=== PATIENT | female | born 1930 | race Caucasian/White ===

== ENCOUNTER 2017-10-08 16:28 | Emergency (ER) | payer MEDICARE ==
[2017-10-08 19:24] LABS: #Basophils 0.1 thou/uL (0.0-0.2); #Eosinphils 0.1 thou/uL (0.0-0.7); #Lymphocytes 1.3 thou/uL (1.20-3.40); #Monocytes 0.8 thou/uL (0.11-0.59); #Neutrophils 7.3 thou/uL (1.40-6.50); %Basophils 0.6 % (0.0-1.0); %Eosinophils 1.1 % (0.0-10.0); %Lymphocytes 13.1 % (21.0-51.0); %Monocytes 8.1 % (0.0-10.0); Hematocrit 38.6 % (36.0-47.0); Mean Platelet Volume 8.5 fL (7.4-10.4); White Blood Cell (WBC) Count 9.5 thou/uL (4.8-10.8)
[2017-10-08 19:43] LABS: ALT (SGPT) 13 U/L (8-55); AST (SGOT) 19 U/L (5-34); Alkaline Phosphatase 120 U/L (40-150); Anion Gap 11 mmol/L (10-20); BUN (Urea Nitrogen) 20 mg/dL (9.8-20.1); Bilirubin, Total 0.5 mg/dL (0.2-1.2); Calc. Creatinine Clearance 0 mL/min (70-130); Calcium 9.8 mg/dL (7.8-10.44); Carbon Dioxide 29 mmol/L (23-31); Chloride 103 mmol/L (98-107); Estimated GFR-MDRD 74; Globulin 2.9 g/dL (2.4-3.5); Protein, Total 6.9 g/dL (6.0-8.3)
[2017-10-08] MEDS ORDERED: traMADol HCl 50 MG TAB ONE (20:19)
== END 2017-10-08 22:25 | disposition critical access hospital (66) ==
LOC: ERS 16:28
DX: S82.144A Nondisplaced bicondylar fracture of right tibia, initial encounter for closed fracture (principal); I25.2 Old myocardial infarction; I10 Essential (primary) hypertension; E78.5 Hyperlipidemia, unspecified; Z79.899 Other long term (current) drug therapy; Z79.82 Long term (current) use of aspirin; W01.0XXA Fall on same level from slipping, tripping and stumbling without subsequent striking against object, initial encounter
CPT/HCPCS: 36415; 80053; 85025; 99285

== ENCOUNTER 2018-02-26 12:29 | Inpatient (IN) | payer MEDICARE ==
[2018-02-26] MEDS ORDERED: Ondansetron ODT 4 MG TAB PO PRN (13:58)
[2018-02-26] MEDS ORDERED: Acetaminophen 325 MG TAB PO PRN ×2 (13:58→15:09)
[2018-02-26] MEDS ORDERED: Bisacodyl 5 MG TAB PO PRN ×2 (13:59→15:09)
[2018-02-26] MEDS ORDERED: Sodium Chloride 0.9% 1,000 ML IV SCH (14:00)
[2018-02-26] MEDS ORDERED: Diabetic Tussin 200 MG/10 ML UDCUP PO PRN (15:09)
[2018-02-26] MEDS ORDERED: cloNIDine 0.1 MG TAB PO PRN (15:09)
[2018-02-26] MEDS ORDERED: Mag-Al 1200 mg/1200 mg/30 ML UDCUP PO PRN (15:09)
[2018-02-26] MEDS ORDERED: Senokot 8.6 MG TAB PO PRN (15:09)
[2018-02-26] MEDS ORDERED: Ondansetron HCl/PF 4 MG/2 ML Vial IVP PRN (15:09)
[2018-02-26] MEDS ORDERED: Nitroglycerin 0.4 MG TAB (25 Tab Bottle) SL PRN (15:09)
[2018-02-26] MEDS ORDERED: hydrALAZINE 20 MG/ML VIAL SLOW IVP PRN (15:09)
[2018-02-26] MEDS ORDERED: Calcium Carbonate 500 MG ChewTAB PO PRN (15:09)
[2018-02-26] MEDS ORDERED: Benzonatate 100 MG CAP PO PRN (15:09)
[2018-02-26] MEDS ORDERED: Loratadine 10 MG TAB PO PRN (15:09)
[2018-02-26] MEDS ORDERED: traMADol HCl 50 MG TAB PO PRN (15:09)
--- NOTE | 2018-02-26 15:30 | PRG ---
DATE OF SERVICE: 02/26/2018 SUBJECTIVE: I have spoken to the transfer center and also to the hospitalist, Dr. Hernandez, the p carmen has been accepted at [facility] to the medical floor. Arrangements hav e been made for her transfer. The patient is being kept n.p.o. and kept on IV fluids 50 mL an hour. I have re-spoke to the patient and she knows she is being transferred and also spoke to her daughter , Danica.
[2018-02-26 15:36] VITALS: BMI 18.0
[2018-02-26] MEDS ORDERED: Succinylcholine Chloride 20 MG/ML 10 ml SYRINGE FS ONE (15:48)
[2018-02-26] MEDS ORDERED: PROPOFOL 200 MG/20 ML VIAL ONE (15:48)
[2018-02-26] MEDS ORDERED: PHENYLEPHRINE-NS 100 MCG/ML 10 ML SYRINGE ONE (15:48)
[2018-02-26] MEDS ORDERED: Lidocaine 1% PF 5 ML VIAL ONE (15:48)
--- NOTE | 2018-02-26 16:12 | HP ---
DATE OF ADMISSION: 02/26/2018 PRIMARY CARE PHYSICIAN: Walter Cardoso M.D. CHIEF COMPLAINT: Esophageal stricture and food impaction. HISTORY OF PRESENT ILLNESS: Ms. Valencia is an 87-year-old female with history of esophageal strictu re requiring dilatation in the past as well as history of coronary artery disease status post CABG in 1993 as well as hypertension, dyslipidemia, and severe GERD who presented to our facility as a direc t admit from [facility]. History is mainly obtained by the record review as well as disc ussion with the patient and her daughter present in the room. Ms. Valencia actually fell yesterday. She lives at home with her and a caregiver. She uses a walker, but she had a mechanical fall at home yesterday and was brought to [facility]. She underwent general imaging studies including a CT scan of the brain and CT scan of the cervi aron, thoracic, and lumbar spine. She did not have any acute fractures or any osseous changes in any of these scans. Incidental finding was noticed to have distended thoracic esophagus with ingested ma terial with possibility of food impaction. She was admitted to [facility] earlier this mo rning by Dr. Cardoso. Because of the possibility of food impaction, Gastroenterology was contacted by Dr. Cardoso and they recommended transfer to our facility for possible endoscopy tomorrow. At this time, she is feeling well and has no acute complaints. She denies any chest pain, odynophagi a or dysphagia. She denies any nausea, vomiting, diarrhea or abdominal pain. She does have some nikolai n in her hips from recent falls. PAST MEDICAL HISTORY: 1. Coronary artery disease status post CABG in 1993. 2. Hypertension. 3. Dyslipidemia. 4. Severe gastroesophageal reflux disease. 5. History of esophageal stricture requiring dilatation on 02/10/2017. 6. Osteoarthritis. 7. Osteoporosis with compression fracture of T8, T11, T12 and L1 and fracture of the right hip requi ring philip and nails. PAST SURGICAL HISTORY: 1. Right hip fracture repair. 2. Appendectomy. 3. TAHBSO. 4. Bilateral rotator cuff repair. ALLERGIES: No known medication allergies. SOCIAL HISTORY: She is and lives at home with her and has a care provider. No histo ry of drug, tobacco or alcohol abuse. CODE STATUS: FULL CODE discussed with patient. FAMILY HISTORY: Both parents with coronary artery disease. CURRENT MEDICATIONS: As per Dr. Cardoso, most recent include metoprolol succinate 25 mg daily, Nexium 40 mg daily, trospium 20 mg p.o. b.i.d., atorvastatin 20 mg daily, vitamin D 5000 units daily, Caltr ate 600/200 daily, acetaminophen as needed, aspirin 81 mg daily, metoclopramide 5 mg per 5 mL b.i.d. as needed. REVIEW OF SYSTEMS: The following complete review of systems was negative, unless otherwise mentioned in the HPI or below: Constitutional: Weight loss or gain, ability to conduct usual activities. Skin: Rash, itching. Eyes: Double vision, pain. ENT/Mouth: Nose bleeding, neck stiffness, pain, tenderness. Cardiovascular: Palpitations, dyspnea on exertion, orthopnea. Respiratory: Shortness of breath, wheezing, cough, hemoptysis, fever or night sweats. Gastrointestinal: Poor appetite, abdominal pain, heartburn, nausea, vomiting, constipation, or diarr hea. Genitourinary: Urgency, frequency, dysuria, nocturia. Musculoskeletal: Pain, swelling. Neurologic/Psychiatric: Anxiety, depression. Allergy/Immunologic: Skin rash, bleeding tendency. It is negative except for those mentioned in the history and physical. LABORATORY DATA AND IMAGING DATA: Labs are reviewed today from [facility]. CBC is unrema rkable. She does have neutrophilia without any leukocytosis. Serum chemistries show blood sugar of 127. Cardiac enzymes normal limits. BUN 28, creatinine normal at 0.87. Chest x-ray by my review vega s no evidence to suggest pulmonary effusion, edema or infiltrate. CT scan of the brain per my review has no acute intracranial abnormalities. CT scan of the cervical, thoracic, and lumbar spine negati ve for any acute fractures. PHYSICAL EXAMINATION: VITAL SIGNS: Temperature 97.7, pulse of 91, respirations 18, saturating 94% on room air, blood press ure 150/66. GENERAL: No acute distress, awake, alert, oriented x3. HEENT: Mucous membranes slightly dry. No oropharyngeal exudate or erythema. Head is normocephalic, atraumatic. Pupils are equal and reactive to light and accommodation. NECK: Supple without any lymphadenopathy, JVD or bruit. CHEST: Clear to auscultation without any wheezing, rales or rhonchi. Rhythm is regular without any murmur, rubs or gallops. ABDOMEN: Soft, nontender, and nondistended with positive bowel sound. No guarding, rebound or rigid ity. EXTREMITIES: Free of any cyanosis, clubbing, or edema. NEUROLOGIC: Examination is nonfocal. SKIN: Free of any rashes or bruises. I feel warm and dry to touch. PSYCHIATRIC: Normal affect. IMPRESSION AND PLAN: 1. Esophageal stricture and food impaction. Gastroenterology has been consulted and she will be kep t n.p.o. for possible esophagogastroduodenoscopy in the morning. At this time, we will add IV proton pump inhibitor and IV fluids to maintain hydration. At this time, we will hold all of her oral medi cations. Add p.r.n. medications as needed. 2. History of coronary artery disease. We will restart her home medications once esophagogastroduod enoscopy is done and she is cleared by Gastroenterology Services. 3. Hypertension. Add p.r.n. antihypertensives and restart home medications when she is cleared to t cheryle oral intake. 4. Dyslipidemia. Restart home medications once confirmed. 5. Code status: FULL CODE. Discussed with the patient. 6. Deep venous thrombosis and gastrointestinal prophylaxis. DISPOSITION: Ms. Valencia is currently being admitted for food impaction and esophageal stricture. Further management will depend upon her clinical course and EGD results. Estimated length of stay at this time is at least 2-3 midnights.
[2018-02-26] MEDS: Sodium Chloride 0.9% 1,000 ML IV SCH (16:20)
[2018-02-26] MEDS ORDERED: Fentanyl 100 MCG/2 ML VIAL ONE (17:01)
--- NOTE | 2018-02-26 17:04 | CON ---
DATE OF CONSULTATION: 02/26/2018 REASON FOR CONSULTATION: Dysphagia, abnormal GI imaging. CONSULTING PHYSICIAN: Jennifer Venegas MD HISTORY OF PRESENT ILLNESS: The patient is an 87-year-old female with past medical history of hemorr hoids, coronary artery disease status post CABG, myocardial infarction, hypertension, osteoarthritis, hyperlipidemia, hiatal hernia, GERD and achalasia with esophageal stricture, presenting with complai nts of dysphagia. She states that she was in her usual state of health until approximately yesterday when she sustained a fall onto her right hip, which prompted her to seek medical attention today. H kiesha, while in [facility], she had imaging of her chest performed which showed a dilated esoph hardik as well as an air fluid level and what appeared to be food debris within the distal esophagus. Given her history of achalasia and likelihood of possible food impaction, she was subsequently transf erred to [facility] for evaluation. Currently, the patient denies any symptoms other than i ncreased right hip pain. Currently, she denies any nausea, vomiting, fevers, chills, dysphagia, odyn ophagia, abdominal pain, GI bleeding or weight loss. She did notice a choking episode approximately 1 week ago when she was trying to eat fried chicken, but has been attempting to adhere to a soft/pure e diet with some dietary indiscretion. Of note, she has undergone multiple EGDs within the last year with the most recent being on 7. During the most recent EGD, she was noted to have a patulous esophagus, but a GE junction that wa s easily traversed with the standard gastroscope. However, she did have an EGD performed on 02/11/20, which showed a significant amount of food debris and food material within the distal esophagus th at did require multiple interventions to remove. REVIEW OF SYSTEMS: Her 10 category review of systems was obtained with all responses negative except for the pertinent positives as listed in the HPI. PAST MEDICAL HISTORY: As per HPI. PAST SURGICAL HISTORY: Hysterectomy, appendectomy, tonsillectomy, bilateral shoulder repair, coronar y artery bypass graft x3, bilateral cataract repair, bilateral tubal ligation. FAMILY HISTORY: Denies any GI malignancies. SOCIAL HISTORY: Denies any tobacco, alcohol or illicit drug use. OUTPATIENT MEDICATIONS: Reviewed. ALLERGIES: An allergy to PENICILLIN in chart, although she states to me at bedside that she does not have this particular allergy. PHYSICAL EXAMINATION: VITAL SIGNS: Temperature 97.7, pulse 91, blood pressure 150/66, respiratory rate 18, satting 94% on room air. GENERAL: The patient is lying in bed comfortably, in no acute distress. Alert and oriented x4. NECK: Supple, no JVD noted. CARDIOVASCULAR: Regular rate and rhythm with no discernible murmurs, gallops or rubs. RESPIRATORY: Clear to auscultation bilaterally with no discernible wheezes or rales. ABDOMEN: Normoactive bowel sounds, soft, nontender, nondistended. EXTREMITIES: No cyanosis, clubbing or edema. Mild cachexia in appearance. LABORATORY DATA: No current labs are available for review. IMAGING DATA: Chest imaging obtained at [facility] showed a significant air fluid level w ithin the distal esophagus as well what appeared to be food debris consistent with a food impaction. ASSESSMENT AND PLAN: The patient is an 87-year-old female with past medical history of hypertension, osteoarthritis, hyperlipidemia, coronary artery disease status post CABG x3, hemorrhoids, hiatal her tressa, gastroesophageal reflux disease, and achalasia, presenting with abnormal GI imaging consistent w ith achalasia and food impaction. Food impaction: The patient is presenting with relatively asymptomatic course with no significant di fficulties with her swallowing; however, she did have an episode of choking approximately 1 week ago, but that was short-lived and did not have a recurrence during this time. However, upon review of he r medical chart, she does have a significant history of dilated distal esophagus as well as an esopha geal stricture that required dilation in January or March of last year. She is now presenting with GI im aging consistent with a dilated distal esophagus and probable food impaction at the GE junction. At this point and especially with her history of achalasia, this is strongly concerning for a food impac tion and would require more emergent endoscopic evaluation for removal of this food. RECOMMENDATIONS: 1. Keep patient n.p.o. for planned procedure later this evening. 2. We will plan for EGD later this evening for removal of the food impaction/bolus and evaluation of the distal esophagus for recurrence of achalasia. 3. We would hold any blood thinners or anticoagulation for now given the possibility of esophageal d ilation. We will continue to follow. Please call with any questions.
[2018-02-26] MEDS ORDERED: Famotidine 20 MG TAB PO SCH (21:00)
[2018-02-26] MEDS: Morphine 4 MG/ML VIAL SLOW IVP PRN (21:11)
[2018-02-26] MEDS: Metoclopramide 10 MG/10 ML UDCUP PO SCH (21:15)
--- NOTE | 2018-02-26 21:31 | OP ---
DATE OF PROCEDURE: 02/26/2018 PROCEDURE: Esophagogastroduodenoscopy with foreign body removal and biopsies. INDICATION FOR PROCEDURE: 1. Abnormal GI imaging 2. History of food impaction. DESCRIPTION OF PROCEDURE: After the risks and benefits of the procedure were explained to the patien t including risks of bleeding, infection, perforation, reactions to anesthesia and/or pain. Informed consent was obtained. The patient was then taken to the endoscopy suite where general anesthesia wa s administered with general endotracheal tube intubation, performed by Anesthesia support. Once adeq uate sedation and intubation had been achieved, the standard gastroscope was introduced into the mout h with intubation of the esophagus, stomach, and the proximal small intestine with the findings liste d below. The patient tolerated the procedure well with no immediate perioperative complications. FINDINGS: Esophagus: Normal appearing mucosa was seen in the proximal esophagus, however, starting at 20 cm and extending down to 35 cm (GE junction). There was a significant amount of retained food, both solid and liquid in form. This retained food was amenable to aggressive irrigation and suction ing with removal of the majority of the food via that route while these larger pieces of food were pu shed into the stomach without difficulty. Underlying the food, there were innumerable whitish plaque s covering approximately 50% of the esophageal mucosa that was friable to the passage of the gastrosc ope. Multiple biopsies were taken of these whitish plaques for evaluation of possible Joi esopha gitis. However, during the course of the procedure with clearing of the mid and distal esophagus, re tained food contents were also seen refluxing back into the distal esophagus. Stomach: A [id number] amount of retained food was seen within the stomach in the gastric cardia and fundus, thereby limiting visualization of the gastric mucosa. This food was amenable to aggress reg irrigation and suctioning with adequate views of these regions obtained of the mucosa visualized. There was no evidence of erosions, ulcerations, mass lesions or active/recent bleeding seen in the cardia, fundus, body, antrum, and incisura. Duodenum: Normal appearing mucosa was seen in both the duodenal bulb and second portion of the duode num. There was no evidence of erosions, ulcerations, or mass lesions. IMPRESSION: 1. A large amount of retained food was seen in the [id number] esophagus as well as the proximal s tomach initially limiting visualization of the GI mucosa, but was at amenable to aggressive irrigatio n and suctioning. 2. Innumerable white plaques seen in the proximal and distal esophagus consistent with Joi esoph agitis. 3. Reflux of gastric contents was seen while evaluating the esophagus consistent with severe acid re flux and/or possible gastroparesis given the amount of retained food. 4. No evidence of distal esophageal stricture or stenosis seen. RECOMMENDATIONS: 1. We will start the patient on fluconazole 200 mg daily x21 days for treatment of Joi esophagit is. 2. We will also restart patient on liquid metoclopramide 5 mg twice daily for probable gastroparesis . 3. Would continue pantoprazole daily for acid reflux seen during this examination. 4. Would place the patient on a clear liquid diet for the time being given the retained food seen on examination today. 5. We will follow up on biopsy results to confirm the presence of Joi esophagitis. We will continue to follow. Please call with any questions.
[2018-02-27] MEDS: Morphine 4 MG/ML VIAL SLOW IVP PRN ×2 (04:50→19:51)
[2018-02-27 04:51] LABS: #Eosinphils 0.2 thou/uL (0.0-0.7); #Lymphocytes 0.8 thou/uL (1.20-3.40); #Monocytes 0.5 thou/uL (0.11-0.59); #Neutrophils 6.1 thou/uL (1.40-6.50); %Basophils 0.3 % (0.0-1.0); %Eosinophils 2.1 % (0.0-10.0); %Lymphocytes 10.9 % (21.0-51.0); %Monocytes 6.7 % (0.0-10.0); %Neutrophils 80.1 % (42.0-75.0); Hemoglobin 10.7 g/dL (12.0-16.0); Mean Corpuscular HGB CONC 32.6 g/dL (32.0-36.0); Mean Corpuscular Hemoglobin 27.4 pg (27.0-31.0); Mean Corpuscular Volume 83.9 fl (81.0-99.0); Mean Platelet Volume 9.3 fL (7.4-10.4); PLT Morphology Comment Appears Decreased; Platelet Count 119 thou/uL (130-400); RBC Distribution Width 16.4 % (11.5-14.5); Red Blood Cell (RBC) Count 3.91 mill/uL (4.20-5.40); White Blood Cell (WBC) Count 7.7 thou/uL (4.8-10.8)
[2018-02-27 04:53] LABS: Anion Gap 12 mmol/L (10-20); BUN (Urea Nitrogen) 20 mg/dL (9.8-20.1); Calc. Creatinine Clearance 37 mL/min (70-130); Calcium 8.5 mg/dL (7.8-10.44); Carbon Dioxide 24 mmol/L (23-31); Chloride 106 mmol/L (98-107); Estimated GFR-MDRD 76; Glucose 69 mg/dL (83-110); Sodium 138 mmol/L (136-145)
[2018-02-27] MEDS: Sodium Chloride 0.9% 1,000 ML IV SCH ×3 (05:50→19:42)
[2018-02-27] MEDS ORDERED: Calcium Carbonate + Vit D 1 TAB PO SCH (09:00)
[2018-02-27] MEDS ORDERED: Fluconazole 100 MG TAB PO SCH (09:00)
[2018-02-27] MEDS ORDERED: TROSPIUM 20 MG TABLET PO SCH (09:00)
[2018-02-27] MEDS ORDERED: Pantoprazole 40 MG VIAL IVP SCH (09:00)
[2018-02-27] MEDS ORDERED: Enoxaparin Sodium 40 MG/0.4 ML SYRINGE SC SCH (09:00)
[2018-02-27] MEDS: Metoclopramide 10 MG/10 ML UDCUP PO SCH ×2 (11:29→19:46)
[2018-02-27] MEDS ORDERED: Morphine 4 MG/ML VIAL SLOW IVP PRN (11:30)
--- NOTE | 2018-02-27 11:41 | PDOC.PN ---
- Subjective Encounter Start Date: 02/27/18 Encounter Start Time: 09:20 -: old records requested/rev pt is on clear liquid diet, no fever, she is able to take oral meds but crushed - Objective Resuscitation Status: Resuscitation Status FULL:Full Resuscitation MAR Reviewed: Yes Vital Signs & Weight: Vital Signs (12 hours) Temp Pulse Resp BP Pulse Ox 02/27/18 08:00 97.5 F L 92 18 92 L 02/27/18 07:49 97.5 F L 92 18 153/64 H 92 L 02/27/18 04:00 98.6 F 92 16 148/65 H 91 L 02/27/18 00:00 98.7 F 85 16 120/61 93 L Weight Weight 92 lb 3 oz Result Diagrams: 02/27/18 04:10 02/27/18 04:10 Phys Exam - Physical Examination Constitutional: NAD HEENT: PERRLA, moist MMs, sclera anicteric Neck: no JVD, supple Respiratory: no wheezing, no rales, no rhonchi Cardiovascular: RRR, no significant murmur, no rub Gastrointestinal: soft, non-tender, no distention, positive bowel sounds Musculoskeletal: no edema, pulses present Neurological: non-focal, normal sensation Lymphatic: no nodes Psychiatric: normal affect Skin: no rash, normal turgor Dx/Plan (1) Joi esophagitis Code(s): B37.81 - CANDIDAL ESOPHAGITIS Status: Acute (2) Food impaction of esophagus Code(s): T18.128A - FOOD IN ESOPHAGUS CAUSING OTHER INJURY, INITIAL ENCOUNTER Status: Acute (3) Thrombocytopenia Code(s): D69.6 - THROMBOCYTOPENIA, UNSPECIFIED Status: Acute (4) Anemia, normocytic normochromic Code(s): D64.9 - ANEMIA, UNSPECIFIED Status: Chronic (5) CAD (coronary artery disease) Code(s): I25.10 - ATHSCL HEART DISEASE OF [place] CORONARY ARTERY W/O ANG PCTRS Status: Chronic Qualifiers: (6) Dyslipidemia Code(s): E78.5 - HYPERLIPIDEMIA, UNSPECIFIED Status: Chronic (7) GERD with esophagitis Code(s): K21.0 - GASTRO-ESOPHAGEAL REFLUX DISEASE WITH ESOPHAGITIS Status: Chronic (8) HTN (hypertension) Code(s): I10 - ESSENTIAL (PRIMARY) HYPERTENSION Status: Chronic Qualifiers: (9) Hiatal hernia Code(s): K44.9 - DIAPHRAGMATIC HERNIA WITHOUT OBSTRUCTION OR GANGRENE Status: Chronic (10) Protein-calorie malnutrition, moderate Code(s): E44.0 - MODERATE PROTEIN-CALORIE MALNUTRITION Status: Chronic - Plan cont current plan of care, continue antibiotics * continue diflucan * continue IVF * today will advance diet as tolerated * ambulate as tolerated * GI help appreciated * resume selected home meds * check UA and urine culture * medication reviewed as below * symptomatic treatment. Review of Systems - Review of Systems ENT: negative: Ear Pain, Ear Discharge, Nose Pain, Nose Discharge, Nose Congestion, Mouth Pain, Mouth Swelling, Throat Pain, Throat Swelling, Other Respiratory: negative: Cough, Dry, Shortness of Breath, Hemoptysis, SOB with Excertion, Pleuritic Pain, Sputum, Wheezing Cardiovascular: negative: chest pain, palpitations, orthopnea, paroxysmal nocturnal dyspnea, edema, light headedness, other Gastrointestinal: negative: Nausea, Vomiting, Abdominal Pain, Diarrhea, Constipation, Melena, Hematochezia, Other Genitourinary: negative: Dysuria, Frequency, Incontinence, Hematuria, Retention , Other Musculoskeletal: negative: Neck Pain, Shoulder Pain, Arm Pain, Back Pain, Hand Pain, Leg Pain, Foot Pain, Other Skin: negative: Rash, Lesions, Orion, Bruising, Other - Medications/Allergies Allergies/Adverse Reactions: Allergies Allergy/AdvReac Type Severity Reaction Status Date / Time Penicillins Allergy Unknown Verified 02/25/18 23:54 Medications: Current Medications Acetaminophen (Tylenol) 650 mg PO Q4H PRN PRN Reason: Headache/Fever or Pain Al Hydroxide/Mg Hydroxide (Maalox) 30 ml PO Q6H PRN PRN Reason: Heartburn or Indigestion Atorvastatin Calcium (Lipitor) 20 mg PO HS GUERA Benzonatate (Tessalon) 100 mg PO Q4H PRN PRN Reason: Cough Bisacodyl (Dulcolax) 10 mg PO DAILYPRN PRN PRN Reason: Constipation Calcium Carbonate (Tums) 1,000 mg PO Q4H PRN PRN Reason: Heartburn or Indigestion Calcium/Vitamin D (Caltrate 600 + Vit D) 1 tab PO DAILY GUERA Cholecalciferol (Vitamin D3) 5,000 units PO DAILY GUERA Clonidine (Catapres) 0.1 mg PO Q4H PRN PRN Reason: Systolic BP > 160 Enoxaparin Sodium (Lovenox) 40 mg SC 0900 [facility] Fluconazole (Diflucan) 200 mg PO DAILY [facility] Stop: 03/19/18 09:01 Guaifenesin (Robitussin Sf) 200 mg PO Q4H PRN PRN Reason: Cough Hydralazine HCl (Apresoline) 10 mg SLOW IVP Q4H PRN PRN Reason: Systolic BP > 170 Sodium Chloride (Normal Saline 0.9%) 1,000 mls @ 75 mls/hr IV .[id number] [facility] Last Admin: 02/27/18 05:50 Dose: 1,000 mls Loratadine (Claritin) 10 mg PO DAILYPRN PRN PRN Reason: Sinus Symptoms Metoclopramide HCl (Reglan) 5 mg PO BID [facility] Last Admin: 02/26/18 21:15 Dose: 5 mg Metoprolol Succinate (Toprol Xl) 25 mg PO DAILY [facility] Morphine Sulfate (Morphine) 1 mg SLOW IVP Q4H PRN PRN Reason: Moderate to Severe Pain (6-10) Last Admin: 02/27/18 11:23 Dose: 1 mg Nitroglycerin (Nitrostat) 0.4 mg SL Q5MIN PRN PRN Reason: Chest Pain Ondansetron HCl (Zofran Odt) 4 mg PO Q6H PRN PRN Reason: Nausea/Vomiting Ondansetron HCl (Zofran) 4 mg IVP Q6H PRN PRN Reason: Nausea/Vomiting Pantoprazole Sodium (Protonix) 40 mg IVP DAILY [facility] Last Admin: 02/27/18 11:27 Dose: 40 mg Senna (Senokot) 2 tab PO HSPRN PRN PRN Reason: Constipation Sodium Chloride (Flush - Normal Saline) 10 ml IVF Q12HR [facility] Last Admin: 02/26/18 21:16 Dose: Not Given Sodium Chloride (Flush - Normal Saline) 10 ml IVF PRN PRN PRN Reason: Saline Flush Tramadol HCl (Ultram) 50 mg PO Q4H PRN PRN Reason: Moderate Pain (4-6) Trospium (Trospium) 20 mg PO BID [facility]
[2018-02-27 12:05] LABS: Bilirubin Negative (Negative); Blood, Urine Negative (Negative); Clarity CLOUDY (Clear); Glucose, Urine (Dipstick) Negative (Negative); Leukocyte Small (Negative); Nitrite Positive (Negative); Protein, Urine (Dipstick) Negative (Neg-Trace); Specific Gravity, Urine 1.016 (1.002-1.036); Urobilinogen 0.2 mg/dL (0.2-1.0)
[2018-02-27 12:08] LABS: Bacteria/HPF Rare-Few HPF (None Seen); Hyaline Casts/LPF 0-3 HYALINE CAST LPF (0-3 Hyaline); Pathc Cast-AUWi Flag 0.14 (0-2.49); RBC/HPF 0-3 HPF (0-3); Squamous Epithelial 0-3 HPF (0-3)
[2018-02-27] MEDS ORDERED: Acetaminophen 325 MG TAB PO PRN (13:56)
[2018-02-27] MEDS ORDERED: Nitroglycerin 0.4 MG TAB (25 Tab Bottle) SL PRN (13:56)
[2018-02-27] MEDS ORDERED: Chloraseptic Spray 180 ml Bottle PO PRN (13:56)
[2018-02-27] MEDS ORDERED: Mag-Al 1200 mg/1200 mg/30 ML UDCUP PO PRN (13:56)
[2018-02-27] MEDS ORDERED: Diabetic Tussin 200 MG/10 ML UDCUP PO PRN (13:56)
[2018-02-27] MEDS ORDERED: Eucerin (Mineral Oil/Petrolatum,White) 30 gm Jar TOP PRN (13:56)
[2018-02-27] MEDS ORDERED: Ondansetron ODT 4 MG TAB PO PRN (13:56)
[2018-02-27] MEDS ORDERED: Bisacodyl 5 MG TAB PO PRN (13:56)
[2018-02-27] MEDS ORDERED: Calcium Carbonate 500 MG ChewTAB PO PRN (13:56)
[2018-02-27] MEDS ORDERED: Artificial Tear Sol 15 ML BOT EA EYE PRN (13:56)
[2018-02-27] MEDS ORDERED: Ondansetron HCl/PF 4 MG/2 ML Vial IVP PRN (13:56)
[2018-02-27] MEDS ORDERED: Loratadine 10 MG TAB PO PRN (13:56)
[2018-02-27] MEDS ORDERED: Milk Of Magnesia 30 ML UDCUP PO PRN (13:56)
[2018-02-27] MEDS ORDERED: Temazepam 15 MG CAP PO PRN (13:56)
[2018-02-27] MEDS ORDERED: Loperamide HCl 2 MG CAP PO PRN (13:56)
[2018-02-27] MEDS ORDERED: cloNIDine 0.1 MG TAB PO PRN (13:56)
[2018-02-27] MEDS ORDERED: Senokot 8.6 MG TAB PO PRN (13:56)
[2018-02-27] MEDS ORDERED: Sodium Chloride 0.65% Nasal 44 ML BOT EA NARE PRN (13:56)
--- NOTE | 2018-02-27 14:18 | PRG ---
DATE OF SERVICE: 02/27/2018 REASON FOR CONSULTATION: Dysphagia and abnormal GI imaging. SUBJECTIVE: The patient states that she continues to have right hip pain that she has had since she sustained a fall the day prior to admission. Otherwise, she states that she is doing well with no complaints of nausea, vomiting, fevers , chills, shortness of breath, dysphagia, odynophagia or abdominal pain. OBJECTIVE: VITAL SIGNS: Temperature 97.8, pulse 96, blood pressure 174/73, respiratory rate 16, and satting 96% on room air. GENERAL: Lying in bed comfortably in no acute distress. Alert and oriented x4. CARDIOVASCULAR: Regular rate and rhythm. RESPIRATORY: Clear to auscultation bilaterally. ABDOMEN: Normoactive bowel sounds, soft, nontender, and nondistended. EXTREMITIES: No cyanosis, clubbing or edema. LABORATORY DATA: CBC with white blood cell count of 7.7, hemoglobin 10.7, hematocrit 32.8, and platelets 119. Chemistry with sodium 138, potassium 4, chloride 106, CO2 24, BUN 20, creatinine 0.73, glucose 69. IMAGING DATA: No current GI imaging is available for review. ASSESSMENT AND PLAN: The patient is an 87-year-old female with past medical history of hypertension, osteoarthritis, hyperlipidemia, coronary artery disease status post CABG x3, hemorrhoids, hiatal hernia, GERD and achalasia presenting with food impaction of the distal esophagus as well as severe gastroesophageal reflux disease. Food impaction: Patient initially presented with relatively asymptomatic course with GI imaging positive for food impaction while she was being worked up for right hip pain after she sustained a fall. EGD was performed on 2017 with the finding of a significant amount of both liquid and solid food material within the distal esophagus and stomach despite being n.p.o. for at least 12 hours prior to the procedure. During the EGD, the food was cleared from the esophagus, but then noted to have reflux of significant amount of food back into the esophagus indicative of severe gastroesophageal reflux disease. There was no evidence of stenosis or stricture at the GE junction consistent with achalasia. At this time, the most likely reason for the food in her distal esophagus would be due to the impaired or dysfunctional esophageal motility and when coupled with delayed gastric emptying and significant acid reflux, it would present with the clinical picture that we saw both on imaging and on esophagogastroduodenoscopy. RECOMMENDATIONS: 1. Would advance patient's diet to clear liquid diet and if she tolerates that we would advance to full liquid diet with soft or liquid diet after that. 2. We would have the patient to remain upright during the day for medication and food administration due to significant acid reflux disease. 3. Would continue PPI for now. 4. Would continue oral elixir Reglan for delayed gastric emptying. 5. Would continue fluconazole for 21 days total therapy for oral candidiasis. 6. We will follow up on the biopsy results. We will sign off. With the above measures, the patient is stable enough from a GI standpoint to be discharged. We would ultimately discharge this patient to follow up within the GI Clinic in 2 weeks for reevaluation of delayed gastric emptying and severe gastroesophageal reflux disease. JAMAAL
[2018-02-27] MEDS: Ciprofloxacin Lactate/D5W 200 MG in Premix Bag 1 BAG IVPB SCH (15:29)
[2018-02-27] MEDS: hydrALAZINE 20 MG/ML VIAL SLOW IVP PRN (15:56)
[2018-02-27] MEDS: HYDROcodone/Acetaminophen 5/325 mg Tablet PO PRN ×2 (16:01→23:00)
[2018-02-27] MEDS: TROSPIUM 20 MG TABLET PO SCH (19:46)
[2018-02-27] MEDS ORDERED: Atorvastatin Calcium 20 MG TAB PO SCH ×2 (21:00)
[2018-02-27] MEDS ORDERED: Ciprofloxacin Lactate/D5W 200 MG in Premix Bag 1 BAG IVPB SCH (21:00)
[2018-02-28] MEDS: Morphine 4 MG/ML VIAL SLOW IVP PRN ×2 (01:33→08:47)
[2018-02-28] MEDS: Ciprofloxacin Lactate/D5W 200 MG in Premix Bag 1 BAG IVPB SCH ×2 (02:08→14:55)
[2018-02-28] MEDS: HYDROcodone/Acetaminophen 5/325 mg Tablet PO PRN ×2 (04:21→17:52)
[2018-02-28 05:28] LABS: #Eosinphils 0.1 thou/uL (0.0-0.7); #Monocytes 0.6 thou/uL (0.11-0.59); #Neutrophils 5.4 thou/uL (1.40-6.50); %Basophils 0.3 % (0.0-1.0); %Eosinophils 1.9 % (0.0-10.0); %Lymphocytes 13.6 % (21.0-51.0); %Monocytes 8.3 % (0.0-10.0); %Neutrophils 75.9 % (42.0-75.0); Hemoglobin 13.1 g/dL (12.0-16.0); Mean Corpuscular HGB CONC 32.2 g/dL (32.0-36.0); Mean Corpuscular Hemoglobin 27.2 pg (27.0-31.0); Mean Corpuscular Volume 84.3 fl (81.0-99.0); Mean Platelet Volume 9.6 fL (7.4-10.4); Platelet Count 146 thou/uL (130-400); RBC Distribution Width 16.4 % (11.5-14.5); Red Blood Cell (RBC) Count 4.83 mill/uL (4.20-5.40); White Blood Cell (WBC) Count 7.1 thou/uL (4.8-10.8)
--- NOTE | 2018-02-28 05:31 | PDOC.PN ---
- Subjective Encounter Start Date: 02/28/18 Encounter Start Time: 10:15 Patient seen and examined. No new complaints. No overnight events - Objective Resuscitation Status: Resuscitation Status FULL:Full Resuscitation MAR Reviewed: Yes Vital Signs & Weight: Vital Signs (12 hours) Temp Pulse Resp BP Pulse Ox 02/27/18 20:08 97.7 F 108 H 18 156/69 H 99 02/27/18 20:00 97.7 F 108 H 18 Weight Weight 92 lb 3 oz I&O: 02/26/18 02/27/18 02/28/18 06:59 06:59 06:59 Intake Total 1621 Balance 1621 Result Diagrams: 02/28/18 05:08 02/28/18 05:08 Phys Exam - Physical Examination Constitutional: NAD HEENT: PERRLA, moist MMs, sclera anicteric Neck: no JVD, supple Respiratory: no wheezing, no rales, no rhonchi Cardiovascular: RRR, no significant murmur, no rub Gastrointestinal: soft, non-tender, no distention, positive bowel sounds Musculoskeletal: no edema, pulses present Neurological: non-focal, normal sensation, moves all 4 limbs Lymphatic: no nodes Psychiatric: normal affect Skin: no rash, normal turgor Dx/Plan (1) Food impaction of esophagus Code(s): T18.128A - FOOD IN ESOPHAGUS CAUSING OTHER INJURY, INITIAL ENCOUNTER Status: Acute (2) Joi esophagitis Code(s): B37.81 - CANDIDAL ESOPHAGITIS Status: Acute (3) UTI (urinary tract infection) Status: Acute (4) Thrombocytopenia Code(s): D69.6 - THROMBOCYTOPENIA, UNSPECIFIED Status: Resolved (5) Anemia, normocytic normochromic Code(s): D64.9 - ANEMIA, UNSPECIFIED Status: Chronic (6) CAD (coronary artery disease) Code(s): I25.10 - ATHSCL HEART DISEASE OF [place] CORONARY ARTERY W/O ANG PCTRS Status: Chronic Qualifiers: (7) Dyslipidemia Code(s): E78.5 - HYPERLIPIDEMIA, UNSPECIFIED Status: Chronic (8) GERD with esophagitis Code(s): K21.0 - GASTRO-ESOPHAGEAL REFLUX DISEASE WITH ESOPHAGITIS Status: Chronic (9) HTN (hypertension) Code(s): I10 - ESSENTIAL (PRIMARY) HYPERTENSION Status: Chronic Qualifiers: (10) Hiatal hernia Code(s): K44.9 - DIAPHRAGMATIC HERNIA WITHOUT OBSTRUCTION OR GANGRENE Status: Chronic (11) Protein-calorie malnutrition, moderate Code(s): E44.0 - MODERATE PROTEIN-CALORIE MALNUTRITION Status: Chronic - Plan cont current plan of care, continue antibiotics * advance diet as per GI * continue cipro for UTI * continue diflucan * medication reviewed as below * symptomatic treatment * DC IVF * expecting discharge soon * follow urine culture. Review of Systems - Review of Systems ENT: negative: Ear Pain, Ear Discharge, Nose Pain, Nose Discharge, Nose Congestion, Mouth Pain, Mouth Swelling, Throat Pain, Throat Swelling, Other Respiratory: negative: Cough, Dry, Shortness of Breath, Hemoptysis, SOB with Excertion, Pleuritic Pain, Sputum, Wheezing Cardiovascular: negative: chest pain, palpitations, orthopnea, paroxysmal nocturnal dyspnea, edema, light headedness, other Gastrointestinal: negative: Nausea, Vomiting, Abdominal Pain, Diarrhea, Constipation, Melena, Hematochezia, Other Genitourinary: negative: Dysuria, Frequency, Incontinence, Hematuria, Retention , Other Musculoskeletal: negative: Neck Pain, Shoulder Pain, Arm Pain, Back Pain, Hand Pain, Leg Pain, Foot Pain, Other Skin: negative: Rash, Lesions, [place], Bruising, Other - Medications/Allergies Allergies/Adverse Reactions: Allergies Allergy/AdvReac Type Severity Reaction Status Date / Time Penicillins Allergy Unknown Verified 02/25/18 23:54 Medications: Current Medications Acetaminophen (Tylenol) 650 mg PO Q4H PRN PRN Reason: Headache/Fever or Mild Pain Hydrocodone Bitart/Acetaminophen ([place] 5/325) 1 tab PO Q4H PRN PRN Reason: Moderate Pain (4-6) Last Admin: 02/28/18 04:21 Dose: 1 tab Al Hydroxide/Mg Hydroxide (Maalox) 30 ml PO Q6H PRN PRN Reason: Heartburn or Indigestion Artificial Tears (Tears Renewed 15ml Bottle) 0 drop EA EYE PRN PRN PRN Reason: Dry Eyes Bisacodyl (Dulcolax) 10 mg PO DAILYPRN PRN PRN Reason: Constipation Calcium Carbonate (Tums) 1,000 mg PO Q4H PRN PRN Reason: Heartburn or Indigestion Calcium/Vitamin D (Caltrate 600 + Vit D) 1 tab PO QAM[facility] Last Admin: 02/28/18 08:45 Dose: 1 tab Cholecalciferol (Vitamin D3) 5,000 units PO DAILY [facility] Last Admin: 02/28/18 08:45 Dose: 5,000 units Clonidine (Catapres) 0.1 mg PO Q4H PRN PRN Reason: Systolic BP > 180 Enoxaparin Sodium (Lovenox) 40 mg SC 0900 [facility] Last Admin: 02/28/18 08:46 Dose: 40 mg Famotidine (Pepcid) 20 mg PO DAILY [facility] Last Admin: 02/28/18 08:45 Dose: 20 mg Fluconazole (Diflucan) 200 mg PO DAILY [facility] Last Admin: 02/28/18 08:46 Dose: 200 mg Guaifenesin (Robitussin Sf) 200 mg PO Q4H PRN PRN Reason: Cough Hydralazine HCl (Apresoline) 10 mg SLOW IVP Q4H PRN PRN Reason: Systolic BP > 180 Last Admin: 02/27/18 15:56 Dose: 10 mg Ciprofloxacin/Dextrose 200 mg/ (Device) 100 mls @ 100 mls/hr IVPB 0300,1500 [facility] Last Admin: 02/28/18 14:55 Dose: 100 mls Sodium Chloride (Normal Saline 0.9%) 1,000 mls @ 50 mls/hr IV .Q20H [facility] Last Admin: 02/27/18 19:42 Dose: 1,000 mls Loperamide HCl (Imodium) 2 mg PO PRN PRN PRN Reason: Diarrhea/Loose Stools Loratadine (Claritin) 10 mg PO DAILYPRN PRN PRN Reason: Sinus Symptoms Magnesium Hydroxide (Milk Of Magnesium) 30 ml PO DAILYPRN PRN PRN Reason: Constipation Metoclopramide HCl (Reglan) 5 mg PO BID [facility] Last Admin: 02/28/18 08:45 Dose: 5 mg Metoprolol Succinate (Toprol Xl) 25 mg PO DAILY [facility] Last Admin: 02/28/18 08:45 Dose: 25 mg Mineral Oil/White Petrolatum (Eucerin Cream) 0 gm TOP BIDPRN PRN PRN Reason: Dry Skin Morphine Sulfate (Morphine) 1 mg SLOW IVP Q4H PRN PRN Reason: Pain Last Admin: 02/28/18 08:47 Dose: 1 mg Nitroglycerin (Nitrostat) 0.4 mg SL Q5MIN PRN PRN Reason: Chest Pain Ondansetron HCl (Zofran Odt) 4 mg PO Q6H PRN PRN Reason: Nausea/Vomiting Ondansetron HCl (Zofran) 4 mg IVP Q6H PRN PRN Reason: Nausea/Vomiting Pantoprazole Sodium (Protonix) 40 mg IVP DAILY [facility] Last Admin: 02/28/18 08:45 Dose: 40 mg Phenol (Chloraseptic [place] 180 Ml Bot) 0 ml PO PRN PRN PRN Reason: Sore Throat Senna (Senokot) 2 tab PO HSPRN PRN PRN Reason: Constipation Sodium Chloride ([place] 0.65%) 0 ml EA NARE QIDPRN PRN PRN Reason: Nasal Congestion Temazepam (Restoril) 15 mg PO HSPRN PRN PRN Reason: Insomnia Last Admin: 02/27/18 19:50 Dose: 15 mg Trospium (Trospium) 20 mg PO BID [facility] Last Admin: 02/28/18 08:45 Dose: 20 mg
[2018-02-28 05:51] LABS: Anion Gap 15 mmol/L (10-20); BUN (Urea Nitrogen) 12 mg/dL (9.8-20.1); Calc. Creatinine Clearance 37 mL/min (70-130); Calcium 9.8 mg/dL (7.8-10.44); Carbon Dioxide 24 mmol/L (23-31); Chloride 104 mmol/L (98-107); Estimated GFR-MDRD 76; Glucose 108 mg/dL (83-110); Potassium 3.7 mmol/L (3.5-5.1); Sodium 139 mmol/L (136-145)
[2018-02-28] MEDS: Calcium Carbonate + Vit D 1 TAB PO SCH (08:45)
[2018-02-28] MEDS: Famotidine 20 MG TAB PO SCH (08:45)
[2018-02-28] MEDS: Metoclopramide 10 MG/10 ML UDCUP PO SCH ×2 (08:45→21:16)
[2018-02-28] MEDS: Pantoprazole 40 MG VIAL IVP SCH (08:45)
[2018-02-28] MEDS: TROSPIUM 20 MG TABLET PO SCH ×2 (08:45→21:15)
[2018-02-28] MEDS: Enoxaparin Sodium 40 MG/0.4 ML SYRINGE SC SCH (08:46)
[2018-02-28] MEDS: Fluconazole 100 MG TAB PO SCH (08:46)
[2018-02-28] MEDS: Sodium Chloride 0.9% 1,000 ML IV SCH (21:19)
[2018-03-01] MEDS: Ciprofloxacin Lactate/D5W 200 MG in Premix Bag 1 BAG IVPB SCH ×2 (02:32→16:37)
[2018-03-01] MEDS: Metoclopramide 10 MG/10 ML UDCUP PO SCH ×2 (08:34→20:49)
[2018-03-01] MEDS: Calcium Carbonate + Vit D 1 TAB PO SCH (08:34)
[2018-03-01] MEDS: Fluconazole 100 MG TAB PO SCH (08:36)
[2018-03-01] MEDS: Enoxaparin Sodium 40 MG/0.4 ML SYRINGE SC SCH (08:36)
[2018-03-01] MEDS: TROSPIUM 20 MG TABLET PO SCH ×2 (08:36→20:50)
[2018-03-01] MEDS: Pantoprazole 40 MG VIAL IVP SCH (08:36)
[2018-03-01] MEDS: Famotidine 20 MG TAB PO SCH (08:37)
[2018-03-01] MEDS: Morphine 4 MG/ML VIAL SLOW IVP PRN (08:37)
--- NOTE | 2018-03-01 10:21 | PDOC.PN ---
- Subjective Encounter Start Date: 03/01/18 Encounter Start Time: 09:40 Patient seen and examined. No overnight events c/o hip pain, - Objective Resuscitation Status: Resuscitation Status FULL:Full Resuscitation MAR Reviewed: Yes Vital Signs & Weight: Vital Signs (12 hours) Temp Pulse Resp BP Pulse Ox 03/01/18 08:01 97.7 F 90 16 177/78 H 97 Weight Weight 92 lb 3 oz I&O: 02/28/18 03/01/18 03/02/18 06:59 06:59 06:59 Intake Total 2227 1873 Balance 2227 1873 Result Diagrams: 02/28/18 05:08 02/28/18 05:08 Phys Exam - Physical Examination Constitutional: NAD HEENT: PERRLA, moist MMs, sclera anicteric Neck: no JVD, supple Respiratory: no wheezing, no rales, no rhonchi Cardiovascular: RRR, no significant murmur, no rub Gastrointestinal: soft, non-tender, no distention, positive bowel sounds Musculoskeletal: no edema, pulses present Neurological: non-focal, normal sensation Psychiatric: normal affect Skin: no rash, normal turgor Dx/Plan (1) Food impaction of esophagus Code(s): T18.128A - FOOD IN ESOPHAGUS CAUSING OTHER INJURY, INITIAL ENCOUNTER Status: Resolved (2) Joi esophagitis Code(s): B37.81 - CANDIDAL ESOPHAGITIS Status: Acute (3) UTI (urinary tract infection) Status: Acute (4) Thrombocytopenia Code(s): D69.6 - THROMBOCYTOPENIA, UNSPECIFIED Status: Resolved (5) Anemia, normocytic normochromic Code(s): D64.9 - ANEMIA, UNSPECIFIED Status: Chronic (6) CAD (coronary artery disease) Code(s): I25.10 - ATHSCL HEART DISEASE OF [place] CORONARY ARTERY W/O ANG PCTRS Status: Chronic Qualifiers: (7) Dyslipidemia Code(s): E78.5 - HYPERLIPIDEMIA, UNSPECIFIED Status: Chronic (8) GERD with esophagitis Code(s): K21.0 - GASTRO-ESOPHAGEAL REFLUX DISEASE WITH ESOPHAGITIS Status: Chronic (9) HTN (hypertension) Code(s): I10 - ESSENTIAL (PRIMARY) HYPERTENSION Status: Chronic Qualifiers: (10) Hiatal hernia Code(s): K44.9 - DIAPHRAGMATIC HERNIA WITHOUT OBSTRUCTION OR GANGRENE Status: Chronic (11) Protein-calorie malnutrition, moderate Code(s): E44.0 - MODERATE PROTEIN-CALORIE MALNUTRITION Status: Chronic (12) Hip pain Code(s): M25.559 - PAIN IN UNSPECIFIED HIP Status: Acute Qualifiers: Laterality: bilateral Qualified Code(s): M25.551 - Pain in right hip; M25.552 - Pain in left hip; M25.552 - Pain in left hip - Plan cont current plan of care, continue antibiotics, PT/OT, sr. social media & mobile manager * medication reviewed as below * symptomatic treatment * will advance diet to mechanical soft diet * follow urine culture * she will benefit from SNU * clinical case manager notified * add lortab for pain * get xray pelvis. Review of Systems - Review of Systems Eyes: negative: Pain, Vision Change, Conjunctivae Inflammation, Eyelid Inflammation, Redness, Other ENT: negative: Ear Pain, Ear Discharge, Nose Pain, Nose Discharge, Nose Congestion, Mouth Pain, Mouth Swelling, Throat Pain, Throat Swelling, Other Respiratory: negative: Cough, Dry, Shortness of Breath, Hemoptysis, SOB with Excertion, Pleuritic Pain, Sputum, Wheezing Cardiovascular: negative: chest pain, palpitations, orthopnea, paroxysmal nocturnal dyspnea, edema, light headedness, other Gastrointestinal: negative: Nausea, Vomiting, Abdominal Pain, Diarrhea, Constipation, Melena, Hematochezia, Other Genitourinary: negative: Dysuria, Frequency, Incontinence, Hematuria, Retention , Other Musculoskeletal: Leg Pain. negative: Neck Pain, Shoulder Pain, Arm Pain, Back Pain, Hand Pain, Foot Pain, Other - Medications/Allergies Allergies/Adverse Reactions: Allergies Allergy/AdvReac Type Severity Reaction Status Date / Time Penicillins Allergy Unknown Verified 02/25/18 23:54 Medications: Current Medications Acetaminophen (Tylenol) 650 mg PO Q4H PRN PRN Reason: Headache/Fever or Mild Pain Hydrocodone Bitart/Acetaminophen ([place] 5/325) 1 tab PO Q4H PRN PRN Reason: Moderate Pain (4-6) Last Admin: 02/28/18 17:52 Dose: 1 tab Al Hydroxide/Mg Hydroxide (Maalox) 30 ml PO Q6H PRN PRN Reason: Heartburn or Indigestion Artificial Tears (Tears Renewed 15ml Bottle) 0 drop EA EYE PRN PRN PRN Reason: Dry Eyes Bisacodyl (Dulcolax) 10 mg PO DAILYPRN PRN PRN Reason: Constipation Calcium Carbonate (Tums) 1,000 mg PO Q4H PRN PRN Reason: Heartburn or Indigestion Calcium/Vitamin D (Caltrate 600 + Vit D) 1 tab PO QAM[facility] Last Admin: 03/01/18 08:34 Dose: 1 tab Cholecalciferol (Vitamin D3) 5,000 units PO DAILY [facility] Last Admin: 03/01/18 08:35 Dose: 5,000 units Clonidine (Catapres) 0.1 mg PO Q4H PRN PRN Reason: Systolic BP > 180 Last Admin: 02/28/18 21:15 Dose: 0.1 mg Enoxaparin Sodium (Lovenox) 40 mg SC 0900 [facility] Last Admin: 03/01/18 08:36 Dose: 40 mg Famotidine (Pepcid) 20 mg PO DAILY [facility] Last Admin: 03/01/18 08:37 Dose: 20 mg Fluconazole (Diflucan) 200 mg PO DAILY [facility] Last Admin: 03/01/18 08:36 Dose: 200 mg Guaifenesin (Robitussin Sf) 200 mg PO Q4H PRN PRN Reason: Cough Hydralazine HCl (Apresoline) 10 mg SLOW IVP Q4H PRN PRN Reason: Systolic BP > 180 Last Admin: 02/27/18 15:56 Dose: 10 mg Ciprofloxacin/Dextrose 200 mg/ (Device) 100 mls @ 100 mls/hr IVPB 0300,1500 [facility] Last Admin: 03/01/18 02:32 Dose: 100 mls Loperamide HCl (Imodium) 2 mg PO PRN PRN PRN Reason: Diarrhea/Loose Stools Loratadine (Claritin) 10 mg PO DAILYPRN PRN PRN Reason: Sinus Symptoms Magnesium Hydroxide (Milk Of Magnesium) 30 ml PO DAILYPRN PRN PRN Reason: Constipation Metoclopramide HCl (Reglan) 5 mg PO BID [facility] Last Admin: 03/01/18 08:34 Dose: 5 mg Metoprolol Succinate (Toprol Xl) 25 mg PO DAILY [facility] Last Admin: 03/01/18 08:36 Dose: 25 mg Mineral Oil/White Petrolatum (Eucerin Cream) 0 gm TOP BIDPRN PRN PRN Reason: Dry Skin Morphine Sulfate (Morphine) 1 mg SLOW IVP Q4H PRN PRN Reason: Pain Last Admin: 03/01/18 08:37 Dose: 1 mg Nitroglycerin (Nitrostat) 0.4 mg SL Q5MIN PRN PRN Reason: Chest Pain Ondansetron HCl (Zofran Odt) 4 mg PO Q6H PRN PRN Reason: Nausea/Vomiting Ondansetron HCl (Zofran) 4 mg IVP Q6H PRN PRN Reason: Nausea/Vomiting Pantoprazole Sodium (Protonix) 40 mg IVP DAILY [facility] Last Admin: 03/01/18 08:36 Dose: 40 mg Phenol (Chloraseptic [place] 180 Ml Bot) 0 ml PO PRN PRN PRN Reason: Sore Throat Senna (Senokot) 2 tab PO HSPRN PRN PRN Reason: Constipation Sodium Chloride ([place] 0.65%) 0 ml EA NARE QIDPRN PRN PRN Reason: Nasal Congestion Temazepam (Restoril) 15 mg PO HSPRN PRN PRN Reason: Insomnia Last Admin: 02/27/18 19:50 Dose: 15 mg Trospium (Trospium) 20 mg PO BID [facility] Last Admin: 03/01/18 08:36 Dose: 20 mg
[2018-03-01] MEDS ORDERED: Hydrocodone-Acetamin 15 ML UDCUP PO PRN (10:24)
--- NOTE | 2018-03-01 12:46 | RAD ---
PELVIS ONE VIEW: History: 87-year-old female with history of hip pain. Comparison: 01-20-17 FINDINGS: Single view of the pelvis demonstrates bony demineralization. Right hip nail stabilizes the proximal right femur. Degenerative changes of the hip joints and sacroiliac joints. Post-operative changes in the central pelvis. IMPRESSION: Bony demineralization with degenerative and arthrosis changes without acute fracture. POS: JITENDRA
[2018-03-01] MEDS: hydrALAZINE 20 MG/ML VIAL SLOW IVP PRN (20:50)
[2018-03-02] MEDS: hydrALAZINE 20 MG/ML VIAL SLOW IVP PRN (00:31)
[2018-03-02] MEDS: HYDROcodone/Acetaminophen 5/325 mg Tablet PO PRN (02:27)
[2018-03-02] MEDS: Ciprofloxacin Lactate/D5W 200 MG in Premix Bag 1 BAG IVPB SCH ×2 (02:44→16:09)
[2018-03-02] MEDS: Enoxaparin Sodium 40 MG/0.4 ML SYRINGE SC SCH (10:06)
[2018-03-02] MEDS: Fluconazole 100 MG TAB PO SCH (10:07)
[2018-03-02] MEDS: Metoclopramide 10 MG/10 ML UDCUP PO SCH (10:07)
[2018-03-02] MEDS: Pantoprazole 40 MG VIAL IVP SCH (10:07)
[2018-03-02] MEDS: Famotidine 20 MG TAB PO SCH (10:08)
[2018-03-02] MEDS: TROSPIUM 20 MG TABLET PO SCH (10:08)
[2018-03-02] MEDS: Calcium Carbonate + Vit D 1 TAB PO SCH (10:09)
--- NOTE | 2018-03-02 11:54 | PDOC.EVN ---
Event Note - Event Note Event Note: DC SUMMARY #[id number]
--- NOTE | 2018-03-02 16:43 | DIS ---
DATE OF ADMISSION: 02/26/2018 DATE OF DISCHARGE: 03/02/2018 ADMITTING DIAGNOSES: Esophageal stricture with food impaction, history of coronary artery disease, h istory of hypertension, history of dyslipidemia, history of gastroesophageal reflux disease, history of osteoarthritis. DISCHARGE DIAGNOSES: Esophageal candidiasis, status post surgical repair, history of coronary artery disease, history of hypertension, history of dyslipidemia, history of gastroesophageal reflux diseas e, history of osteoarthritis. HOSPITAL COURSE: This is an 87-year-old female who was admitted to the hospital because of dysphagia , food impaction, and esophageal stricture. Patient was admitted to Internal Medicine Team, also see n by GI and followed very closely for improvement. Patient had an EGD procedure done. Fluid was rem ajay from her impacted esophagus and the patient also had medication started for esophageal candidias is. No evidence of distal esophageal stricture or stenosis was noted on EGD. Patient was monitored for 2 days postsurgical procedure and was noted to tolerate p.o. diet and was stable back to her base line. The patient stated she expressed interest in going back to SNF facility. At point in time of discharge, the patient denied any nausea, vomiting, diarrhea, constipation, chest pain, fevers or hannah rtness of breath and was stable for discharge back to SNF. Case and plan discussed with the patient and son. She understands and agrees with this plan. DISCHARGE INSTRUCTIONS: SNF. MEDICATIONS: See MAR. FOLLOWUP: With GI and PCP within 2 weeks. DIET: As tolerated, low fat, low calorie, high fiber. ACTIVITY: As tolerated with assistance as appropriate. CONDITION: Stable. PROGNOSIS: Guarded. Case and plan again discussed with the patient at length. She understands and agrees with this plan.
[2018-03-02 16:56] VITALS: BP 162/79; TEMP 98.1
== END 2018-03-02 17:14 | disposition swing bed (61) | DRG 392 ==
LOC: T4-B 13:24 → UNDODISIN 02-27 13:05
PROVIDERS: ADMIT Internal Medicine; ATTEND Internal Medicine
PROC: 0DC18ZZ Extirpation of Matter from Upper Esophagus, Via Natural or Artificial Opening Endoscopic (ICD-10-PCS; principal; 2018-02-26)
PROC: 0DB38ZX Excision of Lower Esophagus, Via Natural or Artificial Opening Endoscopic, Diagnostic (ICD-10-PCS; 2018-02-26)
PROC: 0DB18ZX Excision of Upper Esophagus, Via Natural or Artificial Opening Endoscopic, Diagnostic (ICD-10-PCS; 2018-02-26)
DX: K31.84 Gastroparesis (principal); E44.0 Moderate protein-calorie malnutrition; B37.81 Candidal esophagitis; D69.6 Thrombocytopenia, unspecified; T18.128A Food in esophagus causing other injury, initial encounter; N39.0 Urinary tract infection, site not specified; K30 Functional dyspepsia; D64.9 Anemia, unspecified; E78.5 Hyperlipidemia, unspecified; K44.9 Diaphragmatic hernia without obstruction or gangrene; I25.10 Atherosclerotic heart disease of native coronary artery without angina pectoris; I10 Essential (primary) hypertension; K21.0 Gastro-esophageal reflux disease with esophagitis; X58.XXXA Exposure to other specified factors, initial encounter; M19.90 Unspecified osteoarthritis, unspecified site; Z90.49 Acquired absence of other specified parts of digestive tract; Z90.710 Acquired absence of both cervix and uterus; Z95.1 Presence of aortocoronary bypass graft
CPT/HCPCS: 36415; 72170; 80048; 81001; 85025; 88305; 88312; 88313; A4216; C9113; G8978-GP-CM; G8979-GP-CK; G8987-GO-CM; G8988-GO-CJ; G8996-GN-CK; G8997-GN-CK; J0360; J0744; J1650; J2001; J2270; J2704; J3010

== ENCOUNTER 2018-06-21 18:57 | Observation (INO) | payer MEDICARE ==
[2018-06-21 20:04] LABS: Hemoglobin 5.1 g/dL (12.0-16.0); Mean Corpuscular HGB CONC 29.5 g/dL (32.0-36.0); Mean Corpuscular Hemoglobin 19.4 pg (27.0-31.0); Mean Corpuscular Volume 65.7 fL (78.0-98.0); Mean Platelet Volume 9.7 fL (7.4-10.4); Platelet Count 347 thou/uL (130-400); RBC Distribution Width 19.8 % (11.5-14.5); Red Blood Cell (RBC) Count 2.63 mill/uL (4.20-5.40); White Blood Cell (WBC) Count 8.3 thou/uL (4.8-10.8)
[2018-06-21 20:11] LABS: Iron 11 ug/dL (50-170); Iron Binding Capacity, Total 313 mcg/dL (265-497)
[2018-06-21 20:12] LABS: ALT (SGPT) 9 U/L (8-55); AST (SGOT) 20 U/L (5-34); Albumin 3.3 g/dL (3.4-4.8); Alkaline Phosphatase 130 U/L (40-150); Anion Gap 14 mmol/L (10-20); BUN (Urea Nitrogen) 25 mg/dL (9.8-20.1); Bilirubin, Total 0.3 mg/dL (0.2-1.2); Calc. Creatinine Clearance 0 mL/min (70-130); Calcium 8.8 mg/dL (7.8-10.44); Carbon Dioxide 23 mmol/L (23-31); Chloride 103 mmol/L (98-107); Estimated GFR-MDRD 71; Globulin 2.8 g/dL (2.4-3.5); Glucose 122 mg/dL (83-110); Potassium 4.1 mmol/L (3.5-5.1); Protein, Total 6.1 g/dL (6.0-8.3); Sodium 136 mmol/L (136-145)
[2018-06-21 20:15] LABS: CKMB 1.6 ng/mL (0-6.6); Troponin I 0.011 ng/mL (< 0.028)
[2018-06-21 20:27] LABS: #Lymphocytes 1.7 thou/uL (1.20-3.40); #Monocytes 0.5 thou/uL (0.11-0.59); %Basophils 0.4 % (0.0-1.0); %Eosinophils 0.4 % (0.0-10.0); %Lymphocytes 20.6 % (21.0-51.0); %Neutrophils 72.6 % (42.0-75.0); Anisocytosis SLIGHT = 6-15 cells (100X) (0-5/hpf); Hypochromia SLIGHT = 6-15 cells (100X) (0-5/hpf); MDiff Complete? YES; Microcytosis MODERATE=15-30 cells (100X) (0-5/hpf); Ovalocytes SLIGHT = 2-5 cells (100X) (0-1/hpf); PLT Morphology Comment Appears Adequate; Poikilocytosis SLIGHT = 6-15 cells (100X) (0-5/hpf); Polychromasia SLIGHT = 2-3 cells (100X) (0-2/hpf); Target Cells SLIGHT = 2-5 cells (100X) (0-1/hpf); Tear Drops SLIGHT = 2-5 cells (100X) (0-1/hpf)
[2018-06-21 20:46] LABS: Vitamin B12 Greater than 2000 pg/mL (211-911)
[2018-06-21 20:51] LABS: Bilirubin Negative (Negative); Blood, Urine Small (Negative); Clarity CLOUDY (Clear); Glucose, Urine (Dipstick) Negative (Negative); Leukocyte Moderate (Negative); Nitrite Positive (Negative); Protein, Urine (Dipstick) Negative (Neg-Trace); Specific Gravity, Urine 1.018 (1.002-1.036); Urobilinogen 0.2 mg/dL (0.2-1.0)
[2018-06-21 20:53] LABS: Bacteria/HPF 4+ HPF (None Seen); Hyaline Casts/LPF 4-6 HYALINE CAST LPF (0-3 Hyaline); Pathc Cast-AUWi Flag 0.58 (0-2.49)
[2018-06-21 23:01] LABS: Troponin I 0.014 ng/mL (< 0.028)
[2018-06-21] MEDS ORDERED: Nitroglycerin 0.4 MG TAB (25 Tab Bottle) SL PRN (23:06)
[2018-06-21] MEDS ORDERED: Artificial Tear Sol 15 ML BOT EA EYE PRN (23:06)
[2018-06-21] MEDS ORDERED: traMADol HCl 50 MG TAB PO PRN (23:06)
[2018-06-21] MEDS ORDERED: Acetaminophen 325 MG TAB PO PRN (23:06)
[2018-06-21] MEDS ORDERED: Ondansetron HCl/PF 4 MG/2 ML Vial IVP PRN (23:08)
[2018-06-22 00:31] VITALS: BMI 14.6
[2018-06-22] MEDS: cefTRIAXone\\ROCEPHIN 1 GM in Sodium Chloride 0.9% 100 ML IVPB SCH (04:21)
[2018-06-22 05:31] LABS: Anion Gap 14 mmol/L (10-20); BUN (Urea Nitrogen) 21 mg/dL (9.8-20.1); Calc. Creatinine Clearance 32 mL/min (70-130); Calcium 8.5 mg/dL (7.8-10.44); Carbon Dioxide 24 mmol/L (23-31); Chloride 104 mmol/L (98-107); Estimated GFR-MDRD 85; Glucose 99 mg/dL (83-110); Potassium 3.5 mmol/L (3.5-5.1); Sodium 138 mmol/L (136-145)
[2018-06-22 05:36] LABS: Troponin I 0.013 ng/mL (< 0.028)
[2018-06-22 06:39] LABS: #Eosinphils 0.1 thou/uL (0.0-0.7); #Lymphocytes 1.5 thou/uL (1.20-3.40); #Monocytes 0.6 thou/uL (0.11-0.59); #Neutrophils 5.8 thou/uL (1.40-6.50); %Basophils 0.2 % (0.0-1.0); %Eosinophils 1.3 % (0.0-10.0); %Lymphocytes 18.4 % (21.0-51.0); %Monocytes 7.8 % (0.0-10.0); %Neutrophils 72.3 % (42.0-75.0); Anisocytosis MODERATE=16-30 cells (100X) (0-5/hpf); Hemoglobin 10.3 g/dL (12.0-16.0); MDiff Complete? YES; Mean Corpuscular HGB CONC 31.1 g/dL (32.0-36.0); Mean Corpuscular Hemoglobin 24.1 pg (27.0-31.0); Mean Corpuscular Volume 77.5 fL (78.0-98.0); Mean Platelet Volume 10.6 fL (7.4-10.4); Platelet Count 248 thou/uL (130-400); RBC Distribution Width 21.6 % (11.5-14.5); Red Blood Cell (RBC) Count 4.27 mill/uL (4.20-5.40); White Blood Cell (WBC) Count 8.1 thou/uL (4.8-10.8)
[2018-06-22] MEDS: Metoclopramide HCl 10 MG TAB PO SCH ×2 (09:14→21:00)
[2018-06-22] MEDS: Potassium Chloride 10 MEQ TAB PO SCH (09:14)
--- NOTE | 2018-06-22 11:01 | PDOC.PN ---
- Subjective Encounter Start Date: 06/22/18 Encounter Start Time: 10:59 Subjective: alert, no distress - Objective Resuscitation Status: Resuscitation Status FULL:Full Resuscitation MAR Reviewed: Yes Vital Signs & Weight: Vital Signs (12 hours) Temp Pulse Pulse Resp BP BP BP 06/22/18 08:00 96.8 F L 75 18 06/22/18 07:00 96.8 F L 75 18 161/67 H 06/22/18 03:50 98.4 F 80 16 151/67 H 06/22/18 00:36 98.1 F 83 20 156/67 H 06/22/18 00:17 97.9 F 73 20 155/63 H 06/21/18 23:35 97.9 F 83 20 154/65 H 06/21/18 23:30 97.9 F 80 20 154/65 H Pulse Ox 06/22/18 08:00 06/22/18 07:00 97 06/22/18 03:50 99 06/22/18 00:36 99 06/22/18 00:17 06/21/18 23:35 100 06/21/18 23:30 100 Weight Weight 75 lb I&O: 06/21/18 06/22/18 06/23/18 06:59 06:59 06:59 Intake Total 0 50 Output Total 100 2 Balance -100 48 Result Diagrams: 06/22/18 04:53 06/22/18 04:53 Additional Labs: Accuchecks 06/21/18 20:55 POC Glucose 122 H Phys Exam - Physical Examination Respiratory: clear to auscultation bilateral Cardiovascular: RRR, no significant murmur Gastrointestinal: soft, positive bowel sounds Musculoskeletal: no edema Dx/Plan (1) [place] (iron deficiency anemia) Code(s): D50.9 - IRON DEFICIENCY ANEMIA, UNSPECIFIED Status: Acute (2) Esophagitis Code(s): K20.9 - ESOPHAGITIS, UNSPECIFIED Status: Chronic (3) UTI (urinary tract infection) Status: Acute Qualifiers: Urinary tract infection type: site unspecified (4) CAD (coronary artery disease) Code(s): I25.10 - ATHSCL HEART DISEASE OF [place] CORONARY ARTERY W/O ANG PCTRS Status: Chronic Qualifiers: Coronary Disease-Associated Artery/Lesion type: [place] artery [place] vs. transplanted heart: [place] heart Associated angina: without angina Qualified Code(s): I25.10 - Atherosclerotic heart disease of [place] coronary artery without angina pectoris (5) Dyslipidemia Code(s): E78.5 - HYPERLIPIDEMIA, UNSPECIFIED Status: Chronic (6) GERD with esophagitis Code(s): K21.0 - GASTRO-ESOPHAGEAL REFLUX DISEASE WITH ESOPHAGITIS Status: Chronic (7) HTN (hypertension) Code(s): I10 - ESSENTIAL (PRIMARY) HYPERTENSION Status: Chronic Qualifiers: Hypertension type: essential hypertension - Plan post transfusion 2 units PRBC. Hg 5.1on admit, now 10.3 -: rpt cbc in AM -: iron very low, iv iron infusion * .
[2018-06-22 11:27] LABS: Hemoglobin 9.3 g/dL (12.0-16.0)
[2018-06-22] MEDS: Sodium Ferric Gluconate 250 MG in Sodium Chloride 0.9% 100 ML IVPB SCH ×2 (13:22→23:41)
[2018-06-22 16:54] LABS: Hemoglobin 9.8 g/dL (12.0-16.0)
[2018-06-23] MEDS: cefTRIAXone\\ROCEPHIN 1 GM in Sodium Chloride 0.9% 100 ML IVPB SCH (03:57)
[2018-06-23 05:28] LABS: Hemoglobin 9.6 g/dL (12.0-16.0)
--- NOTE | 2018-06-23 08:36 | HP ---
PRIMARY CARE PHYSICIAN: Walter Cardoso M.D. CODE STATUS: FULL CODE. TIME OF EVALUATION: 8:40 p.m. CHIEF COMPLAINT: Dizziness and generalized weakness. HISTORY OF PRESENT ILLNESS: This is an 88 years old female patient with past medical history of GERD , erosive esophagitis, CAD, CABG, hypertension, hyperlipidemia, mild dementia, came to the hospital a fter having severe generalized weakness, associated with dizziness, and feeling that she was about to pass out, the symptoms were mild to moderate, gradual onset, gradually getting worse. No alleviatin g factors. REVIEW OF SYSTEMS: Constitutional: No fever, no chills. The patient reported generalized weakness. Respiratory: No cough, sputum production, or shortness of breath. Cardiovascular: No chest pain, palpitation, shortness of breath. Gastrointestinal: No nausea, vomiting, diarrhea or abdominal nikolai n. PIPE FITTER WELDING: No dizziness, headache, or feeling lightheaded. Genitourinary: No burning on urination. Extremities: No leg swelling. All other systems were reviewed and negative except for the findings mentioned above. PAST MEDICAL HISTORY: As mentioned in the HPI. PAST SURGICAL HISTORY: Positive for appendectomy and hysterectomy. PSYCHIATRIC HISTORY: No previous psychiatric history. SOCIAL HISTORY: No alcohol, no drugs. No smoking history. FAMILY HISTORY: Reviewed and noncontributory to current presentation. ALLERGIES: No known drug allergies. REPORTED MEDICATIONS: Aspirin, Toprol, tramadol, potassium chloride, atorvastatin, VESIcare. PHYSICAL EXAMINATION: VITAL SIGNS: On presentation, blood pressure 147/34 with temperature 97.7, oxygen saturation was nor mal, heart rate 84, respiratory rate was 19. GENERAL APPEARANCE: The patient was alert, oriented, not in any acute distress. Significant general ized weakness and the patient was very pale. HEENT: Normal conjunctiva. Moist oral mucosa. Anicteric. NECK: No JVD. RESPIRATORY: Bilateral air entry. No rales, no wheezing. Symmetric expansion. CARDIOVASCULAR: Normal rate and rhythm. There were no murmurs, no gallop. ABDOMEN: Soft, normal bowel sounds. MUSCULOSKELETAL: Baseline range of motion and strength. No tenderness. SKIN: Warm and intact. The patient is very pale. No rash, no redness. Peripheral pulses are prese nt. Capillary refill seems to be intact. NEUROLOGIC: Baseline sensory. No evidence of any new focal weakness. Baseline speech. Cranial ner ves seem to be intact. PSYCHIATRIC: The patient is in good mood. No anxiety, oriented, optimal adjustment. EKG was reviewed, the patient has normal sinus rhythm with minimum amount of LVH. Ventricular rate 8 5, DC 138, QRS 114, QT corrected . The patient has LBBB pattern, T waves in lateral leads . LABORATORY DATA: Reviewed. The patient has white count 9.3, hemoglobin 5.1, MCV 65, platelet count 347. Chemistry: Sodium 136, potassium 4.1, chloride 103, carbon dioxide 23, anion gap 14, BUN 25, c reatinine 0.7, GFR 71, glucose 122. Iron 11. LFTs are normal. Troponin was negative x2. Vitamin B 12 greater than 2000. White count in the urine is 11-20. ASSESSMENT AND PLAN: The patient will be placed in the hospital with the following medical problem. 1. Severe microcytic anemia, the patient has a chronic loss might be from GI, stool blood test was n egative, we will monitor hemoglobin, will transfuse as needed, may need a GI evaluation for further w orkup. 2. History of gastroesophageal reflux disease, reconcile home medications. 3. History of CABG with coronary artery disease chronic seems to be stable, we will reconcile home m edications. 4. Hyperlipidemia, reconcile home medications, low cholesterol diet is advised. 5. Uncontrolled hypertension with systolic blood pressure 147, reconcile home medications, adjust th e treatment as needed. 6. Deep venous thrombosis prophylaxis. 7. Urinary tract infection, patient has postive UA, started on antibiotics, , adjust the treatm ent as needed.
--- NOTE | 2018-06-23 08:39 | PDOC.PN ---
- Subjective Encounter Start Date: 06/23/18 Encounter Start Time: 08:37 Subjective: calm - Objective Resuscitation Status: Resuscitation Status FULL:Full Resuscitation MAR Reviewed: Yes Vital Signs & Weight: Vital Signs (12 hours) Temp Pulse Resp BP Pulse Ox 06/23/18 04:05 98.7 F 69 18 154/69 H 96 Weight Admit Weight 75 lb Weight 75 lb I&O: 06/22/18 06/23/18 06/24/18 06:59 06:59 06:59 Intake Total 0 1240 Output Total 100 203 Balance -100 1037 Result Diagrams: 06/23/18 05:20 06/22/18 04:53 Phys Exam - Physical Examination Neck: no JVD Respiratory: clear to auscultation bilateral Cardiovascular: RRR, no significant murmur Gastrointestinal: soft, positive bowel sounds Musculoskeletal: no edema, pulses present Dx/Plan (1) SEBASTIÁN (iron deficiency anemia) Code(s): D50.9 - IRON DEFICIENCY ANEMIA, UNSPECIFIED Status: Acute (2) Esophagitis Code(s): K20.9 - ESOPHAGITIS, UNSPECIFIED Status: Chronic (3) UTI (urinary tract infection) Status: Acute Qualifiers: Urinary tract infection type: site unspecified (4) CAD (coronary artery disease) Code(s): I25.10 - ATHSCL HEART DISEASE OF [place] CORONARY ARTERY W/O ANG PCTRS Status: Chronic Qualifiers: Coronary Disease-Associated Artery/Lesion type: [place] artery [place] vs. transplanted heart: [place] heart Associated angina: without angina Qualified Code(s): I25.10 - Atherosclerotic heart disease of [place] coronary artery without angina pectoris (5) Dyslipidemia Code(s): E78.5 - HYPERLIPIDEMIA, UNSPECIFIED Status: Chronic (6) GERD with esophagitis Code(s): K21.0 - GASTRO-ESOPHAGEAL REFLUX DISEASE WITH ESOPHAGITIS Status: Chronic (7) HTN (hypertension) Code(s): I10 - ESSENTIAL (PRIMARY) HYPERTENSION Status: Chronic Qualifiers: Hypertension type: essential hypertension - Plan Hg stable 9-10 -: post iv iron -: poss DC today, FU * .
[2018-06-23] MEDS: Potassium Chloride 10 MEQ TAB PO SCH (09:20)
[2018-06-23] MEDS: Metoclopramide HCl 10 MG TAB PO SCH (09:20)
[2018-06-23 12:27] VITALS: BP 157/78; TEMP 97.7
--- NOTE | 2018-06-23 15:42 | DIS ---
DATE OF ADMISSION: 06/21/2018 DATE OF DISCHARGE: 06/23/2018 PRIMARY CARE PROVIDER: Dr. Walter Cardoso. DISCHARGE DISPOSITION: Home. FINAL DIAGNOSES: Iron deficiency anemia, essential hypertension, coronary artery disease, dyslipidem ia, hypertension, esophagitis and mild dementia. DISCHARGE MEDICATIONS: Vitamin D3 daily, folic acid 1 mg a day, VESIcare 10 mg at bedtime, Lipitor 2 0 mg at bedtime, Reglan 5 mg p.o. t.i.d. with meals, aspirin 81 mg a day, tramadol 50 mg p.o. q.8 ángel rs p.r.n., Klor-Con 10 mEq p.o. daily, metoprolol 25 mg p.o. daily. ALLERGIES: PENICILLINS. DIET: Heart healthy diet. CODE STATUS: FULL RESUSCITATION. PENDING AT THE TIME OF DISCHARGE: Nothing. HOSPITAL COURSE: The patient admitted to [facility] to [facility] with dizziness and generalized weakness. She was found to have hemoglobin of 5.1, was t ransfused with 2 units of packed cells. Her iron level was 11, iron binding capacity high. Comp met abolic profile was essentially normal. Patient underwent IV iron loading. Today, she is alert, plea elvia and cooperative. Hemoglobin in the last . Vital signs are stable. Cardiovascular exam is normal. I have discussed the situation with the power of real estate associate attorney, the daughter, she is being disch arged to go home. She has been asked to follow up with Dr. Walter Cardoso in 7 days. She will need a CBC at followup. Her stool for occult blood was negative indicating no bleeding at this time. No p rocedures were done. No consultations were obtained.
--- NOTE | 2018-06-26 14:08 | EKG ---
Test Reason : Blood Pressure : / mmHG Vent. Rate : 085 BPM Atrial Rate : 085 BPM P-R Int : 138 ms QRS Dur : 114 ms QT Int : 410 ms P-R-T Axes : 044 044 167 degrees QTc Int : 487 ms Normal sinus rhythm Minimal voltage criteria for LVH, may be normal variant Anterior infarct , age undetermined Abnormal ECG Similar to 24-FEB-2017 Confirmed by TED BRUNSON ([id number]), proposal editor HERBERTH GOINS ([id number]) on 06/26/2018 2:07:27 PM Referred By: Confirmed By:TED BRUNSON
== END 2018-06-23 13:59 | disposition home or self-care (01) ==
LOC: ERS 18:57 → 2NO 23:00
PROVIDERS: ADMIT Hospitalist; ATTEND Hospitalist
DX: D50.9 Iron deficiency anemia, unspecified (principal); R42 Dizziness and giddiness; R53.1 Weakness; I25.10 Atherosclerotic heart disease of native coronary artery without angina pectoris; I10 Essential (primary) hypertension; E78.5 Hyperlipidemia, unspecified; F03.90 Unspecified dementia, unspecified severity, without behavioral disturbance, psychotic disturbance, mood disturbance, and anxiety; N39.0 Urinary tract infection, site not specified; K21.0 Gastro-esophageal reflux disease with esophagitis; Z79.82 Long term (current) use of aspirin; Z79.899 Other long term (current) drug therapy; Z88.0 Allergy status to penicillin; Z95.1 Presence of aortocoronary bypass graft
CPT/HCPCS: 36430; 80048 ×2; 80053; 80061; 80076; 82274; 82553; 82607; 82746; 82962; 83010; 83540; 83550; 83615; 84484 ×3; 85014 ×2; 85018 ×2; 85025 ×3; 86850; 86900; 86901; 86920; 87086; 93005; 96365; 96366 ×2; 96367; 99285; G0378 ×2; P9016 ×2; 36415; 36416; 81003; 81015; A4353; J0696; J2916; J7050

== ENCOUNTER 2018-07-03 01:42 | Observation (INO) | payer MEDICARE ==
[2018-07-03] MEDS ORDERED: Sodium Chloride 0.9% 1,000 ML IV SCH (06:15)
[2018-07-03 06:30] VITALS: BMI 15.5
[2018-07-03] MEDS ORDERED: hydrALAZINE 20 MG/ML VIAL SLOW IVP PRN (10:18)
--- NOTE | 2018-07-03 10:50 | HP ---
PRIMARY CARE PROVIDER: Walter Cardoso M.D. CHIEF COMPLAINT: Esophageal obstruction. HISTORY OF PRESENT ILLNESS: Ms. Valencia is a pleasant 88-year-old lady, who was seen at [facility] on 07/03/2018. She was transferred here from emergency room at [place], where she was initially evaluated. She reports that she was trying to eat chicken at lunch yesterday when the food got stuck in her ches t. After that, she had difficulty swallowing and has been spitting up saliva. She reports that even when she drinks water, no water is coming out. She denies any chest pain, shortness of breath, fevers, or chills. REVIEW OF SYSTEMS: All other systems reviewed and found to be negative. PAST MEDICAL HISTORY: Significant for gastroesophageal reflux disease, erosive esophagitis, coronary artery disease, coronary artery bypass graft, hypertension, dyslipidemia, and mild dementia. PAST SURGICAL HISTORY: Appendectomy and hysterectomy. SOCIAL HISTORY: The patient denies tobacco use, alcohol use, or recreational drug use. FAMILY HISTORY: She reports that her family has a strong history of coronary artery disease. ALLERGIES: No known drug allergies. CURRENT MEDICATIONS: Folic acid 1 mg daily, VESIcare 10 mg at bedtime, Lipitor 20 mg at bedtime, Reg shira 5 mg 3 times a day with meals, aspirin 81 mg daily, tramadol 50 mg every 4 hours as needed, potas sium chloride 10 mEq daily, metoprolol 25 mg daily, and vitamin D3 5000 units daily. CODE STATUS: I discussed her code status. She is FULL CODE. PHYSICAL EXAMINATION: GENERAL: Ms. Valencia is awake and alert, not in acute distress. VITAL SIGNS: Blood pressure is 164/83, pulse 82, respiratory rate 16, and oxygen saturation 96% on r oom air. She is afebrile. She appears under-nourished, with a BMI of 15.5. EYES: No scleral icterus. No conjunctival pallor. ENT: Moist mucosal membranes, no oropharyngeal erythema or exudates. NECK: Supple, nontender, trachea is midline. RESPIRATORY: Accessory muscles of breathing are not active. Chest wall movements are symmetric bila terally. LUNGS: Clear to auscultation without wheeze, rhonchi, or crepitations. CARDIOVASCULAR: S1 and S2 are heard, regular. Peripheral pulses palpable. No carotid bruit, no per icardial rub. ABDOMEN: Soft, nontender, bowel sounds heard, no hepatomegaly, no splenomegaly. NEUROLOGIC: Cranial nerves II-XII intact. Deep tendon reflexes are 2+. MUSCULOSKELETAL: Power is 5/5 in all 4 extremities. SKIN: No rashes or subcutaneous nodules. LYMPHATIC: No cervical lymphadenopathy. PSYCHIATRIC: Normal mood, normal affect, patient is oriented to person, place, and time. LABORATORY DATA: Ms. Valencia's laboratories and investigations were reviewed. Chest x-ray showed a new right mediastinal mass, suspicious for malignant mediastinal lymphadenopathy. The radiologist r ecommended further evaluation with CT scan of the chest. There was no evidence of pneumonia. Chest CT done without contrast showed severe distention of almost entire esophagus, filled with a large bez oar. The cause could be a stricture of the distal esophagus caused by malignant primary neoplasm, sc ar due to chronic gastroesophageal reflux and achalasia, according to radiologist. She had multiple old burst fractures of the thoracic spine and lumbar spine. She had a normal white count, normocytic anemia with hemoglobin 11.2, normal platelet count, normal electrolytes, elevated blood urea nitroge n of 26, normal creatinine of 0.70, and a mildly elevated BNP of 111. ASSESSMENT AND PLAN: Ms. Valencia is a pleasant 88-year-old lady, who was seen at [facility] on 07/03/2018. Her problem list includes: 1. Esophageal obstruction: Ms. Valencia is presenting with esophageal obstruction secondary to bezo ar and stricture. She will be admitted to the hospital for further management. She will be kept n.p .o. Gastroenterology service will be consulted for opinion and help with management. 2. Hypertension: For now, she will be n.p.o. We will add p.r.n. IV hydralazine for blood pressure spikes. 3. Coronary artery disease: Appears to be stable. She denies any chest pain at this time. 4. Dyslipidemia: Nil acute. Many thanks for allowing me to participate in your patient's care. Please feel free to contact me wi th any questions or concerns. LEVEL OF RISK: Moderate. LEVEL OF COMPLEXITY: Moderate.
[2018-07-03] MEDS ORDERED: Metoclopramide HCl 10 MG/2 ML VIAL IVP SCH (14:00)
--- NOTE | 2018-07-03 14:05 | CON ---
DATE OF CONSULTATION: 07/03/2018. 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 She last underwent an EGD on 02/26/2018 showing a large amount of retained esophageal contents. It has been recommended she stay on a liquid or pureed diet, which linn gonzalez has been resistant to do. She was seen by [facility] complaining of a cough and yellow phlegm . She had some chills. They did a CT of the chest, which showed severe esophageal dilatation and it containing bezoar. PAST MEDICAL HISTORY: Significant for hyperlipidemia, osteoporosis, coronary artery disease, hyperte nsion, mild dementia. PAST MEDICAL HISTORY: Includes coronary artery bypass, appendectomy, hysterectomy. ALLERGIES: No known allergies. MEDICATIONS: Include Tylenol p.r.n., aspirin 81 mg p.o. daily, metoclopramide 5 mg p.o. b.i.d., tram adol 50 mg p.o. q.8 hours p.r.n., metoprolol 25 mg p.o. daily, calcium carbonate 500 mg p.o. q.4 hour s. SOCIAL HISTORY: She lives independently, does not smoke or drink. FAMILY HISTORY: Negative. REVIEW OF SYSTEMS: Constitutional: No fever or chills. Positive for ongoing weight loss. Eyes: No blurred vision or double vision. ENT: No sore throat or earaches. Cardiovascular: No ch est pain or palpitation. Pulmonary: No shortness of breath, positive for cough, no wheezing. Gastr ointestinal: See above. Genitourinary: No hematuria or dysuria. Musculoskeletal: No joint pain o r muscle weakness. Skin: No rashes. Neurologic: No numbness or seizure activity. PHYSICAL EXAMINATION: GENERAL: Shows a cachectic white female, in no acute distress. VITAL SIGNS: Temperature 97.8, pulse 82, respiratory rate 16, blood pressure 164/83. HEENT: Unremarkable. NECK: Supple. CHEST: Clear. CARDIOVASCULAR: Regular rate and rhythm. ABDOMEN: Soft, nontender, without organomegaly or masses. RECTAL: Deferred. LABORATORY DATA: Shows a hemoglobin of 11.2, normal BMP. ASSESSMENT: 1. Esophageal motility disorder - I do not think this is achalasia, because the patient has widely p atent GE junction, but the patient certainly lacks peristalsis. It shows a large amount of retained food, which she has had multiple times in the past. She seems to be tolerating her secretions well a t this time. 2. Coronary artery disease. 3. Weight loss. RECOMMENDATIONS: 1. Clear liquids today. 2. most of the day. 3. IV Reglan. 4. EGD in a.m.
[2018-07-03] MEDS ORDERED: Mag-Al Plus 1200 MG/1200 MG/120 MG/30 ML UDCUP PO PRN (17:33)
[2018-07-03] MEDS ORDERED: Acetaminophen 325 MG TAB PO PRN (17:33)
[2018-07-03] MEDS ORDERED: traMADol HCl 50 MG TAB PO PRN (17:33)
[2018-07-03] MEDS: TROSPIUM 20 MG TABLET PO SCH (20:42)
[2018-07-03] MEDS ORDERED: Atorvastatin Calcium 20 MG TAB PO SCH (21:00)
[2018-07-04] MEDS: Metoclopramide HCl 10 MG TAB PO SCH ×2 (08:07→13:25)
[2018-07-04] MEDS: Folic Acid 1 MG TAB PO SCH ×2 (08:07→08:08)
[2018-07-04] MEDS: TROSPIUM 20 MG TABLET PO SCH (08:10)
[2018-07-04] MEDS ORDERED: Potassium Chloride 10 MEQ TAB PO SCH (09:00)
[2018-07-04] MEDS ORDERED: Aspirin 81 mg Enteric Coated Tablet PO SCH (09:00)
[2018-07-04] MEDS ORDERED: Ketamine 50 MG/ML VIAL ONE (10:13)
[2018-07-04] MEDS ORDERED: Fentanyl 100 MCG/2 ML VIAL ONE (10:13)
[2018-07-04] MEDS ORDERED: Ondansetron HCl/PF 4 MG/2 ML Vial IVP PRN (11:27)
[2018-07-04 12:10] VITALS: BP 101/60; TEMP 97.8
--- NOTE | 2018-07-04 12:43 | OP ---
PREOPERATIVE DIAGNOSES: 1. Esophageal foreign body. 2. Esophageal motility disorder. PROCEDURE: After informed consent was obtained, the patient placed in left lateral decubitus positio n. Anesthesia was administered per the Anesthesia Department. Forward-viewing endoscope was inserte d into the esophagus under direct visualization with ease and passed to the second portion of the duo denum with ease. Second portion of the duodenum and duodenal bulb were normal. Pylorus, antrum, bod y, fundus, and cardia were normal. Retroflexion in the stomach was normal. There was a small amount of retained gastric contents. There was a hiatal hernia. The GE junction seemed to be somewhat str ictured; however, there was free flow of gastric contents between the stomach and the esophagus. The esophagus was cleared of a large amount of food material by and pushing food into the stomach. There were diffuse erosions in the end of the stomach, either from stasis or reflux. A 20-mm ballo on was used across the GE junction and inflated for 1 minute, deflated, and removed. There was some post-dilatation bleeding. ASSESSMENT: 1. Esophageal foreign body - esophagus was full of food material, status post clearing. 2. Dilated esophagus. 3. Distal erosions in the esophagus - reflux or stasis. 4. Esophageal stricture - status post dilatation. 5. Hiatal hernia. 6. Small amount of retained gastric contents. RECOMMENDATIONS: 1. Pureed diet. 2. Continue Protonix 40 mg twice daily as an outpatient. 3. Continue metoclopramide. 4. Pureed diet. 5. Stable for discharge from a gastrointestinal standpoint.
--- NOTE | 2018-07-04 14:35 | DIS ---
DATE OF ADMISSION: 07/03/2018 DATE OF DISCHARGE: 07/04/2018 PRIMARY CARE PROVIDER: Walter Cardoso M.D. DISCHARGE DIAGNOSES: 1. Esophageal foreign body. 2. Esophageal erosions. 3. Esophageal stricture. 4. Hiatal hernia. CONDITION OF PATIENT ON THE DAY OF DISCHARGE: Stable. I assessed Ms. Valencia on the day of dischar . She denies any chest pain or shortness of breath. Vital signs are stable. S1 and S2 are heard, regular. Lungs are clear to auscultation bilaterally. CONSULTATIONS DURING THIS HOSPITALIZATION: Gastroenterology, Dr. To Ayala. DISCHARGE MEDICATIONS: In addition to her preadmission home medications as dictated on my history an d physical note dated 07/03/2018, she is being discharged on Protonix 40 mg twice daily. HOSPITAL COURSE: Ms. Valencia is a pleasant 88-year-old lady who was admitted to [facility] for esophageal obstruction on 07/03/2018. Please refer to my history and physical not e dated 07/03/2018 for further information. She was seen by Gastroenterology Service. On 07/04/2018 , she underwent EGD, which showed esophageal foreign body, esophagus is full of food material, which was cleaned. She also had dilated esophagus, distal erosions in the esophagus secondary to reflux or stasis and esophageal strictures, which was dilated. She also had hiatal hernia and small amount of retained gastric contents. She has been recommended pureed diet and to continue metoclopramide and start Protonix 40 mg twice daily. Many thanks for allowing me to participate in your patient's care. Please feel free to contact me wi th any questions or concerns. DISCHARGE DESTINATION: Home.
[2018-07-04] MEDS ORDERED: PHENYLEPHRINE-NS 100 MCG/ML 10 ML SYRINGE ONE (15:13)
[2018-07-04] MEDS ORDERED: Succinylcholine Chloride 20 MG/ML 10 ml SYRINGE FS ONE (15:13)
[2018-07-04] MEDS ORDERED: ePHEDrine/0.9% NaCl/PF SYRINGE 50 mg/10 ml ONE (15:13)
[2018-07-04] MEDS ORDERED: PROPOFOL 200 MG/20 ML VIAL ONE (15:13)
== END 2018-07-04 15:29 | disposition home or self-care (01) ==
LOC: ERS 01:42 → T4-A 06:11
PROVIDERS: ADMIT Hospitalist; ATTEND Hospitalist
PROC: 0D758ZZ Dilation of Esophagus, Via Natural or Artificial Opening Endoscopic (ICD-10-PCS; principal; 2018-07-04)
PROC: 0DC58ZZ Extirpation of Matter from Esophagus, Via Natural or Artificial Opening Endoscopic (ICD-10-PCS; 2018-07-04)
DX: K22.2 Esophageal obstruction (principal); T18.128A Food in esophagus causing other injury, initial encounter; K22.10 Ulcer of esophagus without bleeding; K44.9 Diaphragmatic hernia without obstruction or gangrene; E78.5 Hyperlipidemia, unspecified; I25.10 Atherosclerotic heart disease of native coronary artery without angina pectoris; I10 Essential (primary) hypertension; F03.90 Unspecified dementia, unspecified severity, without behavioral disturbance, psychotic disturbance, mood disturbance, and anxiety; R63.4 Abnormal weight loss; Z79.82 Long term (current) use of aspirin; Z79.899 Other long term (current) drug therapy; Z88.0 Allergy status to penicillin; Z68.1 Body mass index [BMI] 19.9 or less, adult
CPT/HCPCS: 43247; 43249; 96374; 99285; G0378 ×2; J2704; J2765; J3010

== ENCOUNTER 2018-07-29 13:17 | Emergency (ER) | payer MEDICARE | END 2018-07-29 15:30 | disposition home or self-care (01) | LOC: ERS 13:17 | DX: K22.2 Esophageal obstruction (principal); R13.10 Dysphagia, unspecified; I25.10 Atherosclerotic heart disease of native coronary artery without angina pectoris; K21.9 Gastro-esophageal reflux disease without esophagitis; E78.5 Hyperlipidemia, unspecified; I10 Essential (primary) hypertension; F03.90 Unspecified dementia, unspecified severity, without behavioral disturbance, psychotic disturbance, mood disturbance, and anxiety; Z79.899 Other long term (current) drug therapy; Z79.82 Long term (current) use of aspirin | CPT/HCPCS: 99284 ==